=== PATIENT | male | born 1975 ===

== ENCOUNTER → 2023-05-02 02:18 | Outpatient (CLI) | payer SELFPAY ==
--- NOTE | 2023-05-02 09:25 | DI.RAD_ITS ---
Exam(s) XR CERVICAL SP JERRY TRAUMA 2-3V EXAM: XR CERVICAL SP JERRY TRAUMA 2-3V CLINICAL HISTORY: RADICULOPATHY CERVICAL REGION, M54.12. TECHNIQUE: 2D digital imaging was performed. Three images were obtained. COMPARISON: No exams were available for comparison FINDINGS: BONES: No fracture or destructive lesion. Small endplate osteophytes are seen at several levels of th e cervical spine. DISKS: Intervertebral disc spaces are maintained. ALIGNMENT: Cervical spinal alignment is within normal limits. The odontoid and atlantoaxial articulat ions are normal. SOFT TISSUE: Normal. The lung apices are clear. IMPRESSION: Mild degenerative changes seen in the cervical spine. DATA REPOSITORY: RADIATION DOSE DELIVERED:
== END ==
PROVIDERS: Visit Provider Family Medicine
DX: M50.81 Other cervical disc disorders, high cervical region (principal)
CPT/HCPCS: 72040